=== PATIENT | female | born 1950 | race Caucasian/White ===

== ENCOUNTER → 2023-09-17 15:47 | Outpatient (REF) | payer MEDICARE, SELFPAY | LOC: DHCBC HW 15:47 | PROVIDERS: ATTENDING PHYSICIAN Nurse Practitioner; FAMILY PHYSICIAN Internal Medicine | DX: I10 Essential (primary) hypertension (principal); I48.0 Paroxysmal atrial fibrillation; I35.0 Nonrheumatic aortic (valve) stenosis | CPT/HCPCS: 93306 ==

== ENCOUNTER → 2023-10-23 07:14 | Outpatient (REF) | payer MEDICARE, SELFPAY | LOC: DHCBC/DCA 07:14 | PROVIDERS: ATTENDING PHYSICIAN Internal Medicine; FAMILY PHYSICIAN Internal Medicine | DX: I48.0 Paroxysmal atrial fibrillation (principal) | CPT/HCPCS: 78452; 93017; A9500; J2785 ==

== ENCOUNTER → 2024-02-12 08:54 | Outpatient (REF) | payer MEDICARE, SELFPAY | LOC: HWRCS 08:54 | PROVIDERS: ATTENDING PHYSICIAN Internal Medicine; FAMILY PHYSICIAN Internal Medicine | DX: R60.0 Localized edema (principal) | CPT/HCPCS: 93306 ==

== ENCOUNTER 2024-02-22 07:20 | Day surgery (SDC) | payer MEDICARE, SELFPAY ==
[2024-02-22] VITALS (7 sets, daily range): BP systolic 129–208; BP diastolic 58–91; BMI 39.8
[2024-02-22 08:41] LABS: Glucose - Point of Care 168 mg/dl (70-99)
[2024-02-22] MEDS: VANCOCIN 300 ML IV (09:30)
[2024-02-22] MEDS: VANCOCIN 300 MG IV (09:30)
--- NOTE | 2024-02-22 11:54 | ITS.CL.PACE ---
[employer] - Pacemaker Implant
Pacemaker Implant
Procedure Report:
Dual Chamber Pacemaker Placement:
Ms. 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
Indications: Tachy-young syndrome
Date of the Procedure: 02/22/2024
Pre-Operative Diagnosis: Tachy-young syndrome
Post-Operative Diagnosis: Tachy-young syndrome
Procedure Performed: DUAL CHAMBER PACEMAKER IMPLANTATION
Performing Physician:
Noe Rodriguez MD
Anesthesia:
See anesthesia records
Pre-operative antibiotics:
Vanco and Aztreonam
Detailed Description of the Procedure:
The patient was identified using hospital identification and informed consent obtained for the procedure. The risks were explained including, but not limited to: Bleeding, infection, arrhythmia, stroke, vascular/cardiac/lung puncture, surgery,
pacemaker dependency/device malfunction. All questions were answered.
The patient was brought to the electrophysiology laboratory in stable condition in fasting state. Continuous electrocardiographic and hemodynamic monitoring was initiated.
The initial rhythm was sinus bradycardia.
The procedure site was meticulously prepared with surgical scrub and allowed to dry with no pooling. Sterile draping was applied to cover the procedure site. The image intensifier was draped with sterile bag and positioned over the patient.
A surgical pause and time out was performed immediately prior to the procedure with review of her medical history, recent labs, allergies and medications with site of procedure identified and consent noted in the chart. Antibiotics pre operatively
given. All team members concurred.
The left infraclavicular region was prepped and draped in the usual sterile fashion. Local anesthesia was administered subcutaneously using 1% lidocaine / Bupivacaine. The left cephalic vein cutdown was performed with an incision at the
delto-pectoral groove, and vascular sheaths were introduced for lead access. These were advanced into the right ventricle and the right atrium.
The right ventricular lead was secured in position with an active fixation technique at the apical septal location.
The RA lead was attached in the right atrial appendage with active fixation in the RAA.
There was excellent sensing, pacing, and impedance from the leads, with no diaphragmatic stimulation at 10 V output.�Bovie cautery, antibiotics, and fluoroscopy were used.
The sheaths were withdrawn, and the thresholds remained acceptable. The leads were secured in position at the venous entry site with 0-silk. A pocket was fashioned contiguous to the incision. The electrode terminals were connected to the pulse
generator, which was placed into the pocket. The generator was secured to the underlying fascia.
The wound was irrigated thoroughly with antibiotic solution.
The wound was closed in 3 layers using 2-0 V loc then two layers of 4-0 VLOc sutures to the dermis. Steri-strips were applied externally and covered with Aquacel bandage.
Procedure End:
The procedure was tolerated well.
Estimated Blood loss:
5 cc
Specimens Removed:
No cultures and no specimens were obtained. No intraoperative pathology was identified.
Urine output:
None
Packs / Drains/ Tubes:
None
Instrument / Sponge Count Correct:
Yes
Complications of the Procedure:
None
Condition of Patient at Time of Transfer:
Hemodynamically stable with no neurological or vascular compromise.
Device information:�
Generator: [employer]; Model: [id number]; Serial #[id number]
Atrial Lead: [employer]; Model: 2088TC/52; Serial # [id number]
Measured data in the right atrium was sensing of 2.4mV, impedance of 400 ohms and threshold of 1.0V at 0.4ms�
RV Lead: [employer]; Model: 2088TC/58; Serial # [id number]
Measured data in the RV lead was sensing of 7.0 mV, impedance of 930 ohms and threshold of 0.5 V at 0.4ms�
Young parameter settings were DDDR 60-120 bpm. �(VIP mode)
��������������� Mode Switch: On
��������������� Paced AV interval: 180ms
��������������� Sensed AV interval: 150 ms.
��������������� Rate Adaptive A-V Interval: Off
Summary:
Successful implantation of MRI compatible dual chamber [employer] pacemaker
Results/Recommendations:
-Please follow up CXR�
1. Please provide patient with adequate pain control�
Instructions to be given to patient:�
- Please follow up with [facility] at [address] [place] [address] ([phone]) to get your wound checked within 14 days of your discharge.
- Do not wet incision site until after it is evaluated at cardiology clinic. No soaking or bath until then. Showers or Sponge baths are OK.�Dab dry the area after a shower.
- Do not lift left elbow above shoulder, particularly with sudden jerking movements, for 1 month�
- Do not lift anything weighing more than 10 pounds with the left arm for 1 month�
- If you notice any fevers, shortness of breath, lightheadedness, chest pain, or worsening swelling in the wound site, please contact the arrhythmia clinic, contact your display decorator, or present to the hospital for evaluation.�
Noe Rodriguez MD
Electrophysiology
--- NOTE | 2024-02-22 12:35 | PTCARENOTE ---
Received patient post pacemaker at 12:30. AV paced on the monitor.L chest dressing CDI, no evidence of hematoma. L immobilizer in place. BP 206/91, notified HEDGE TRIMMER Beckie Babb, also notified of pt complaining of a sore throat. Oriented pt to room.
Educated pt on activity restrictions, expected ambulation time, and plan of care. Pt verbalizes understanding.
[2024-02-22] MEDS: ANESTHETIC LOZENGE 1 LOZENGE PO ×2 (13:09→17:17)
[2024-02-22] MEDS: TOPROL XL 25 MG PO (13:09)
[2024-02-22] MEDS: NORVASC 5 MG PO (13:10)
--- NOTE | 2024-02-22 14:24 | CM ---
Reviewed chart. Met with Mrs. Rai to review discharge plans. 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 She has a first floor set-up. She states prior to admission she was
independent with ambulation and adls. She states she does not have any DME in the home. She states she has a prescription plan and uses [facility]. The discharge plan is to return home with her sons when medically stable.
[2024-02-22] MEDS: LASIX 40 MG PO (16:25)
[2024-02-22] MEDS: LIPITOR 20 MG PO (17:17)
--- NOTE | 2024-02-22 23:44 | PTCARENOTE ---
L chest wall w/ steri-strips and Aquacel c/d/i. L arm immobilizer on. Reviewed activity restrictions w/ pt. Verbalizes understanding. Tele- A paced. HR 60s. Pt has no c/o at this time. Currently in bed; call curly w/in reach.
[2024-02-23 03:55] VITALS: BP 134/63
[2024-02-23 04:32] LABS: Hematocrit 32.8 % (37.0-47.0); Hemoglobin 11.5 g/dL (12.0-16.0); Mean Corp Hgb Conc. 35.1 g/dL (33.0-37.0); Mean Corpuscular Hgb 29.6 pg (27.0-31.0); Mean Corpuscular Volume 84.5 fL (81.0-99.0); Platelet Count 264 10^3/uL (130-400); Red Blood Cell Count 3.88 10^6/uL (4.20-5.40); Red Cell Dist. Width 13.6 % (11.5-14.5)
[2024-02-23 04:46] LABS: Blood Urea Nitrogen 18 mg/dl (7-17); Calcium 9.3 mg/dl (8.4-10.2); Carbon Dioxide 24 mmol/L (22-30); Chloride 101 mmol/L (98-107); Estimated Creatinine Clearance 73 ml/min; Glucose 206 mg/dl (70-99); Potassium 4.4 mmol/L (3.5-5.1); Sodium 138 mmol/L (135-145); eGFR > 60.00
[2024-02-23 07:02] VITALS: BP 97/74
[2024-02-23 07:25] VITALS: BMI 39.3
--- NOTE | 2024-02-23 09:13 | W.PN.CARDCBS ---
Addendum entered and electronically signed by Noe Rodriguez MD 02/23/24 09:43:
Patient is seen and evaluated personally. Patient is atrially paced with demand ventricular pacing.
The PPm site is healing well. No sign of bleeding, hematoma or fluctuation.
PPM was interrogated and is working normal.
Stable for discharge.
Original Note:
Today's Communication / Plan
-
post DC PPM
stable for d/c home
Impression / Plan
-
PCP: Sagar Mcallister MD
CDY: Charan Spain MD
Ms. 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
Impression/Plan:
Symptomatic Tachy- bradycardia syndrome - post DC PPM, site stable, tele Apaced, CXR no PTX
Activity restrictions reviewed, incision check 1 week
Paroxysmal Afib - Resume Eliquis this am, [id number] =5
HTN - continue amlodipine, metoprolol
HLD - continue atorvastatin
NIDDM - continue metformin, SSI while in hospital
GERD - continue omeprazole
stable for d/c home
Progress Note - Joint Supervisor
Subjective
Date of Service: February 23, 2024
no cp, sob, yesterday had chest pressure with deep inspiration and sore throat, improved this am
Objective
Labs:
02/23/24 04:20
02/23/24 04:20
Labs
Hgb 11.5 g/dL (12.0-16.0) L 02/23/24 04:20
Hct 32.8 % (37.0-47.0) L 02/23/24 04:20
Plt Count 264 10^3/uL (130-400) 02/23/24 04:20
Sodium 138 mmol/L (135-145) 02/23/24 04:20
Potassium 4.4 mmol/L (3.5-5.1) 02/23/24 04:20
BUN 18 mg/dl (7-17) H 02/23/24 04:20
Creatinine 0.8 mg/dL (0.6-1.0) 02/23/24 04:20
Glucose 206 mg/dl (70-99) H 02/23/24 04:20
Vital Signs and I&O:
Vital Signs
Temp Pulse Resp BP Pulse Ox
97.6 F 61 18 97/74 100
02/23/24 07:21 02/23/24 08:15 02/23/24 07:21 02/23/24 07:02 02/23/24 07:21
Vital Signs
Temp Pulse Resp BP Pulse Ox
97.6 F 61 18 97/74 100
02/23/24 07:21 02/23/24 08:15 02/23/24 07:21 02/23/24 07:02 02/23/24 07:21
Intake & Output
02/21/24 02/22/24 02/23/24 02/24/24
06:59 06:59 06:59 06:59
Intake Total 1040 / 1040
Balance 1040 / 1040
Physical Exam
Physical Exam
NAD< AOx3
S1, S2, RRR, II/ THOMAS
CTAB, non labored
SNTND Bsx4
L CW Aquacel dressing c/d/i no HT
[2024-02-23 09:21] VITALS: BP 141/67
[2024-02-23] MEDS: GLUCOPHAGE XR EXTENDED RELEASE 500 MG PO (09:22)
[2024-02-23] MEDS: PROTONIX 40 MG PO (09:22)
[2024-02-23] MEDS: LASIX 40 MG PO (09:22)
[2024-02-23] MEDS: NORVASC 5 MG PO (09:23)
[2024-02-23] MEDS: ELIQUIS 5 MG PO (09:23)
[2024-02-23] MEDS: TOPROL XL 25 MG PO (09:23)
--- NOTE | 2024-02-23 09:33 | W.DS.TRANS ---
DC Summary - Asparagus Buncher
-
Discharge Instructions:
Sleep Apnea Risk Intermediate
Discharge Diagnosis/Procedures Pacemaker implant
Diet Low Cholesterol,Diabetic, Carb Controlled
Driving Restrictions No driving for 1 week
Bathing Restrictions OK to Shower
Instructions:
Stand-Alone Forms: DC Inst - Implanted Device
Changes to Home Medications: No
Discharge Medications:
DC Medications w/original date entered in [facility]
acetaminophen 500 mg tablet 1,000 mg PO Q6H PRN PAIN 02/22/24
amlodipine 5 mg tablet 5 mg PO DAILY 02/22/24
apixaban 5 mg tablet (Eliquis) 5 mg PO BID 02/22/24
atorvastatin 20 mg tablet 20 mg PO QPM 02/22/24
biotin 10,000 mcg chewable tablet (Hair, Skin and Nails (biotin)) 10,000 mcg PO BID 02/22/24
cetirizine 10 mg tablet (Zyrtec) 20 mg PO BID 02/22/24
furosemide 40 mg tablet (Lasix) 40 mg PO BID@0800,1400 02/22/24
halobetasol propionate 0.05 % topical cream 1 applic topical QPM 02/22/24
ibuprofen 200 mg tablet (Advil) 200 mg PO Q6H PRN PAIN 02/22/24
metformin 500 mg tablet,extended release 24 hr 500 mg PO DAILY 02/22/24
metoprolol succinate 25 mg capsule sprinkle, ext. release 24 hr 25 mg PO DAILY 02/22/24
omeprazole 20 mg capsule,delayed release 20 mg PO DAILY 02/22/24
polyethylene glycol 3350 17 gram/dose oral powder (Miralax) 4 g PO DAILY 02/22/24
polyethylene glycol 400 0.25 % eye drops (Blink Tears) 1 drp ophthalmic (eye) QID PRN DRY EYES 02/22/24
triamcinolone acetonide 0.1 % topical cream 1 applic topical DAILY 02/22/24
vit C 250 mg-vit E 90 mg-zinc 40 mg-copper 1 bd-ibrchg-xhplqu capsule (PreserVision AREDS-2) 1 tab PO BID 02/22/24
vitamin D3 250 mcg (10,000 unit)-vitamin K2 45 mcg capsule 1 cap PO DAILY 02/22/24
Home Medication Changes
Pending Results: No
--- NOTE | 2024-02-23 09:43 | W.CARD.DEVCH ---
Cardiac Device Check
-
Device: Pacemaker
Talent Acquisition Manager: [employer]
The patient's device was interrogated with assistance of the device commercial representative followed by a complete physician review. The device had normal function. No abnormalities seen.
[2024-02-23 10:57] VITALS: BP 128/63
--- NOTE | 2024-02-23 11:38 | PTCARENOTE ---
D/C'd pt's IV line & director business systems. Went over D/C instructions including activity restrictions post PPM implantation. Pt taken out via wheelchair by volunteer w/pt's sister driving her home.
== END 2024-02-23 11:40 | disposition home or self-care (01) ==
LOC: CATH 07:20
PROVIDERS: Nurse Practitioner; ATTENDING PHYSICIAN Internal Medicine Cardiovascular Disease; FAMILY PHYSICIAN Internal Medicine; OTHER PHYSICIAN Internal Medicine
DX: I49.5 Sick sinus syndrome (principal); Z88.0 Allergy status to penicillin; Z88.5 Allergy status to narcotic agent; Z79.01 Long term (current) use of anticoagulants; Z79.84 Long term (current) use of oral hypoglycemic drugs; Z79.899 Other long term (current) drug therapy; I48.0 Paroxysmal atrial fibrillation; I10 Essential (primary) hypertension; E11.9 Type 2 diabetes mellitus without complications; I35.0 Nonrheumatic aortic (valve) stenosis; K21.9 Gastro-esophageal reflux disease without esophagitis; M19.90 Unspecified osteoarthritis, unspecified site; Z87.891 Personal history of nicotine dependence
CPT/HCPCS: 33208; C1892; 71045; 80048; 82962; 85027; 93005; C1785; C1898

== ENCOUNTER 2024-02-27 16:12 | Emergency (ER) | payer MEDICARE, SELFPAY ==
[2024-02-27 16:15] VITALS: BP 165/85
--- NOTE | 2024-02-27 17:48 | ED.GENMED ---
History of Present Illness
General
Chief Complaint: Swelling
Source: patient
Time Seen by Provider: 02/27/24 17:06
History of Present Illness
History of Present Illness:
73 year old female presenting to the ER for evaluation of atraumatic left hand swelling and pain since yesterday, this morning having a harder time closing hand and gripping which is what caused her to come to ED. She notes earlier this week she had
a pacemaker placed and notes she did have an IV in her left hand. She contacted her audio video mechanic who recommended patient come to ED to rule out DVT. No history of similar and no other concerns at this time
Past History
Past History
ED Past Medical History: Arrthythmia, CHF, GERD, HTN, Hypercholesterolemia and NIDDM
ED Past Surgical History: Cardiac, Cholecystectomy and Orthopedic
Social History
Tobacco: Non-smoker
Alcohol: None
Drug: None
Personal: Single
Living: alone
Review of Systems
Review of Systems
All Other Systems: ROS reviewed and negative except as documented in HPI and ROS
Phy Exam
Physical Exam
Physical Exam:
GENERAL: Alert , in no apparent distress
EYE: conjunctiva clear
Head: Normocephalic atraumatic
NECK: Supple,
ENT: mmm.
LUNGS: no acute respiratory distress
NEUROLOGICAL: Alert and oriented
SKIN: Warm and dry, skin intact.
MUSCULOSKELETAL: Left Upper Extremity: Moderate STS dorsum of left hand. No focal ttp but there is pain with attempted ROM of the left thumb. No palpable chord. Easily palpable radial pulse. CR < 2 sec. Sensation grossly intact to light touch.
PSYCH: Normal and appropriate interaction.
Scores
Heart Failure Risk
Heart Failure Risk Score: Not Applicable
Heart Score for Chest Pain Patients
STEMI patient?: Not applicable
Withdrawal Assessment of Alcohol
Withdrawal Assessment Completed?: Not applicable
Course
Orders/Labs/Results
Orders:
Orders
02/27/24 16:19
US Periph Venous UPPER Ext LT Urgent
Comment:
Reason For Exam: swelling
Vital Signs
Initial and Last Documented VS:
Initial Vital Signs
Temp Pulse Resp BP Pulse Ox
98.4 F 64 18 165/85 97
02/27/24 16:15 02/27/24 16:15 02/27/24 16:15 02/27/24 16:15 02/27/24 16:15
Last Documented Vital Signs
Temp Pulse Resp BP Pulse Ox
98.4 F 64 18 165/85 97
02/27/24 16:15 02/27/24 16:15 02/27/24 16:15 02/27/24 16:15 02/27/24 16:15
MDM/Problems Addressed
Differential Diagnosis Includes:
phlebitis, DVT, no arterial puncture to suggest pseudoaneurysm
MDM/Problems Addressed:
73-year-old female presenting to the emergency department for evaluation of left hand swelling that she noticed yesterday, worse today. Recent procedure where she had an IV inserted into her left hand. Most likely diagnosis would be phlebitis.
Will check ultrasound this patient was sent for DVT rule out although I am less suspicious for this as a diagnosis. Patient did take some Motrin earlier today with some relief. Discussed continued outpatient measures including warm compresses.
Anticipate discharge home following ultrasound.
*Radiology
Radiology exam reviewed: radiology read reviewed
*Pulse Oximetry
Patient hypoxic: no
*Critical Care Note
Total Time (30-74mins, 75-104mins- exclusive of procedures): Not Applicable
Patient Management
Escalation/DeEscalation of care consider admission/obs:
Patient US is negative for DVT/SVT. Advised continued NSAIDs prn, heat and elevation. stable for d/c home
ED Attending Note
-
Portions of this chart may have been created with voice recognition software.� Occasional wrong word or��sound alike� substitutions may have occurred due to the inherent limitations of voice recognition software.
Discharge Plan
Departure
Patient Disposition: Home (Routine Discharge)
Date of Disposition: 02/27/24
Time of Disposition: 18:23
Patient with high blood pressure during this ER visit?: Yes
Discharge Problem:
Hand edema
Instructions: Phlebitis (DC)
Prescriptions:
No Action
furosemide [Lasix] 40 mg Tablet
40 mg PO BID@0800,1400
atorvastatin 20 mg Tablet
20 mg PO QPM
omeprazole 20 mg Capsule,Delayed Release(Dr/Ec)
20 mg PO DAILY
metformin 500 mg Tablet Extended Release 24 Hr
500 mg PO DAILY
Eliquis 5 mg Tablet
5 mg PO BID
Hair, Skin and Nails (biotin) 10,000 mcg Tablet,Chewable
10,000 mcg PO BID
polyethylene glycol 3350 [Miralax] 17 gram/dose Powder
4 g PO DAILY
cetirizine [Zyrtec] 10 mg Tablet
20 mg PO BID
amlodipine 5 mg Tablet
5 mg PO DAILY
acetaminophen 500 mg Tablet
1,000 mg PO Q6H PRN (Reason: PAIN)
triamcinolone acetonide 0.1 % Cream
1 applic TOPICAL DAILY
ibuprofen [Advil] 200 mg Tablet
200 mg PO Q6H PRN (Reason: PAIN)
halobetasol propionate 0.05 % Cream
1 applic TOPICAL QPM
PreserVision AREDS-2 250-90-40-1 mg Capsule
1 tab PO BID
metoprolol succinate 25 mg Capsule,Sprinkle,Er 24hr
25 mg PO DAILY
Blink Tears 0.25 % Drops
1 drp OPHTHALMIC (EYE) QID PRN (Reason: DRY EYES)
vitamin D3-vitamin K2 250 mcg (10,000 unit)-45 mcg Capsule
1 cap PO DAILY
Referrals:
Roosevelt Mcallister MD [Family Provider] -
Interventions
Interventions:
*Risk Screen - Suicide Last Done: 02/27/24 16:15
*General Assessment Last Done: 02/27/24 16:15
*Neglect/Abuse Screening Last Done: 02/27/24 16:15
ED- Fall Risk Assessment Last Done: 02/27/24 17:29
*ED COVID-19 Vaccine History Last Done: 02/27/24 16:15
*Nursing Disposition Last Done: 02/27/24 19:23
ED- Cardiac Assessment Last Done: 02/27/24 17:29
ED- Pulmonary Assessment Last Done: 02/27/24 17:29
ED-Skin Assessment Last Done: 02/27/24 17:29
Discharge Date and Time
Discharge Date/Time: 02/27/24 19:23
Print Language: [id number]
== END 2024-02-27 19:23 | disposition home or self-care (01) ==
LOC: EMR 16:12
PROVIDERS: EMERGENCY PHYSICIAN Emergency Medicine; FAMILY PHYSICIAN Internal Medicine
DX: R60.0 Localized edema (principal); E11.9 Type 2 diabetes mellitus without complications; E78.00 Pure hypercholesterolemia, unspecified; I11.0 Hypertensive heart disease with heart failure; I50.9 Heart failure, unspecified; K21.9 Gastro-esophageal reflux disease without esophagitis; Z95.0 Presence of cardiac pacemaker
CPT/HCPCS: 99284; 93971

== ENCOUNTER → 2024-11-17 08:10 | Outpatient (REF) | payer OTHER, SELFPAY | LOC: RCS 08:10 | PROVIDERS: ATTENDING PHYSICIAN Internal Medicine; FAMILY PHYSICIAN Internal Medicine | DX: I48.0 Paroxysmal atrial fibrillation (principal); R06.09 Other forms of dyspnea | CPT/HCPCS: 93306 ==

== ENCOUNTER → 2024-12-27 09:44 | Outpatient (REF) | payer OTHER, SELFPAY | LOC: OHS 09:44 | PROVIDERS: ATTENDING PHYSICIAN Nurse Practitioner Family | DX: Z23 Encounter for immunization (principal) | CPT/HCPCS: 36415; 86480 ==